=== PATIENT | male | born 1965 | race Two or more races ===

== ENCOUNTER 2018-04-17 11:42 | Outpatient (CLI) | payer OTHER | END 2018-04-17 11:53 | disposition home or self-care (01) | LOC: RAD 501 11:42 | DX: M54.2 Cervicalgia (principal); M54.5 Low back pain; M54.6 Pain in thoracic spine; I70.0 Atherosclerosis of aorta ==

== ENCOUNTER 2018-07-03 13:29 | Outpatient (CLI) | payer OTHER | END 2018-07-03 14:13 | disposition home or self-care (01) | LOC: MRI 13:29 | DX: M25.561 Pain in right knee (principal); M25.662 Stiffness of left knee, not elsewhere classified | CPT/HCPCS: 73721 ==

== ENCOUNTER 2019-09-03 07:45 | Outpatient (CLI) | payer OTHER | END 2019-09-03 07:47 | disposition home or self-care (01) | LOC: NUCLEAR 07:45 | PROVIDERS: ATTEND Internal Medicine Cardiovascular Disease | DX: R94.31 Abnormal electrocardiogram [ECG] [EKG] (principal); R07.89 Other chest pain ==

== ENCOUNTER 2020-05-01 04:14 | Emergency (ER) | payer OTHER ==
[~2020-05-01] VITALS: Ht 175.3 cm; Wt 99.8 kg
[2020-05-01] MEDS ORDERED: PYRIDIUM DS200 MG PO (09:24)
[2020-05-01] MEDS ORDERED: TAMS0.4C PO (09:24)
== END 2020-05-01 09:51 | disposition home or self-care (01) ==
LOC: ER 04:14
DX: N40.1 Benign prostatic hyperplasia with lower urinary tract symptoms (principal); R33.8 Other retention of urine

== ENCOUNTER 2021-03-09 15:35 | Outpatient (CLI) | payer OTHER ==
[~2021-03-09 15:35] MED LIST: PYRIDIUM DS200 MG PO; TAMS0.4C PO
== END 2021-03-09 15:50 | disposition home or self-care (01) ==
LOC: PPH VACUNA 15:35
PROVIDERS: ATTEND Emergency Medicine Pediatric Emergency Medicine
DX: Z23 Encounter for immunization (principal)

== ENCOUNTER 2022-05-30 16:33 | Outpatient (CLI) | payer OTHER | END 2022-05-30 16:40 | disposition home or self-care (01) | LOC: RAD 16:33 | PROVIDERS: ATTEND Internal Medicine Geriatric Medicine | DX: M77.11 Lateral epicondylitis, right elbow (principal); M19.221 Secondary osteoarthritis, right elbow ==

== ENCOUNTER → 2022-06-02 | Day surgery (SDC) | payer OTHER | END | disposition home or self-care (01) | LOC: ADM 05-30 07:45 → CIR.AMB 07:45 | PROVIDERS: ATTEND Orthopaedic Surgery | DX: M24.521 Contracture, right elbow (principal); G56.21 Lesion of ulnar nerve, right upper limb; I10 Essential (primary) hypertension; Z20.822 Contact with and (suspected) exposure to COVID-19; Z88.6 Allergy status to analgesic agent; M19.211 Secondary osteoarthritis, right shoulder ==